=== PATIENT | male | born 1995 | race African-American/Black ===

== ENCOUNTER 2016-11-15 21:07 | Emergency (ER) | payer OTHER ==
[~2016-11-15] VITALS: Ht 175.3 cm; Wt 99.8 kg
[2016-11-15] MEDS ORDERED: ONDANSETRON ODT 4 MG TAB.RAPDIS ONE (21:33)
[2016-11-15] MEDS ORDERED: PROM25TA10 PO (21:34)
--- NOTE | 2016-11-15 21:34 | PHYS DOC ---
Past Medical History Past Medical History: No Pertinent History Past Surgical History: No Surgical History Alcohol Use: None Drug Use: Marijuana Adult General Chief Complaint Chief Complaint: NAUSEA/VOMITING/DIARRHA HPI HPI Patient is a 21 year old male who presents with 1 episode of nbnb emesis and 3 episodes of nb watery diarrhea approx 3 hours after eating dinner. No one ate same meal. Has minimal crampy general abdominal discomfort. Denies f/c, dysuria, back pain. Was feeling fine prior to dinner. Review of Systems Review of Systems Constitutional: Denies fever or chills [] Eyes: Denies change in visual acuity, redness, or eye pain [] HENT: Denies nasal congestion or sore throat [] Respiratory: Denies cough or shortness of breath [] Cardiovascular: No additional information not addressed in HPI [] GI: Denies bloody stools or bloody emesis [] : Denies dysuria or hematuria [] Musculoskeletal: Denies back pain or joint pain [] Integument: Denies rash or skin lesions [] Neurologic: Denies headache, focal weakness or sensory changes [] Endocrine: Denies polyuria or polydipsia [] Current Medications Current Medications Current Medications Medications (Trade) Dose Ordered Sig/Faisal Start Time Stop Time Status Last Admin Dose Admin Ketorolac Tromethamine (Toradol) 15 mg 1X ONCE 11/15/16 22:15 11/15/16 22:16 Ondansetron HCl (Zofran Odt) 4 mg STK-MED ONCE 11/15/16 21:33 11/15/16 21:34 DC Allergies Allergies Allergies Coded Allergies Type Severity Reaction Last Updated Verified No Known Drug Allergies 04/18/14 No Physical Exam Physical Exam Constitutional: Well developed, well nourished, no acute distress, non-toxic appearance. [] HENT: Normocephalic, atraumatic, bilateral external ears normal, oropharynx moist, nose normal. [] Eyes: PERRLA, EOMI. [] Neck: Normal range of motion, supple. [] Cardiovascular:Heart rate regular rhythm [] Lungs & Thorax: Bilateral breath sounds clear to auscultation [] Abdomen: Bowel sounds normal, soft, no tenderness. [] Skin: Warm, dry, no erythema, no rash. [] Back: No tenderness, no CVA tenderness. [] Extremities: No tenderness, ROM intact. [] Neurologic: Alert and oriented X 3, normal motor function, normal sensory function, no focal deficits noted. [] Psychologic: Affect normal, judgement normal, mood normal. [] Current Patient Data Vital Signs Vital Signs Date Time Temp Pulse Resp B/P Pulse Ox O2 Delivery O2 Flow Rate FiO2 11/15/16 21:09 97.6 66 20 158/100 100 Room Air 97.6 Course & Med Decision Making Course & Med Decision Making Pertinent Labs and Imaging studies reviewed. (See chart for details) Appears well on exam. Given zofran here; tolerating oral intake. Discussed supportive care. Return precautions given. He understands and agrees with plan. Dragon Disclaimer Dragon Disclaimer This electronic medical record was generated, in whole or in part, using a voice recognition dictation system. Departure Departure Impression: Primary Impression: Nausea vomiting and diarrhea Disposition: HOME, SELF-CARE Condition: STABLE Referrals: NO PCP (PCP) Patient Instructions: Food Poisoning, [id number] Additional Instructions: You were seen for possible food poisoning. Take promethazine as needed for nausea. Drink liquids to stay hydrated. Follow up with your primary care doctor. Return for any concerns. Scripts Promethazine Hcl 25 Mg Tablet1 Tab PO PRN Q6HRS PRN NAUSEA #10 TAB Prov:Shannon VILLALTA MD 11/15/16 Shannon VILLALTA MD Nov 15, 2016 21:34
[2016-11-15] MEDS ORDERED: ONDANSETRON ODT 4 MG TAB.RAPDIS PO ONE (21:45)
[2016-11-15 22:10] VITALS: BP 155/74
[2016-11-15] MEDS ORDERED: KETOROLAC TROMETHAMINE 30 MG/ML SYRINGE. IM ONE (22:15)
== END 2016-11-15 22:17 | disposition home or self-care (01) ==
LOC: ER 21:07
DX: R11.2 Nausea with vomiting, unspecified (principal); R19.7 Diarrhea, unspecified; F12.10 Cannabis abuse, uncomplicated
CPT/HCPCS: 96372; 99283; J1885; Q0162